=== PATIENT | male | born 1965 | race Caucasian/White ===

== ENCOUNTER 2024-11-05 06:38 | Emergency (ER) | payer BC, SELFPAY ==
[2024-11-05 06:46] VITALS: BP 137/96; PULSE 68; RESP 16; TEMP 36.6; O2SAT 94; BMI 33.4
--- NOTE | 2024-11-05 06:53 | CRLHL7_ITS ---
For Patients: As a result of the Century Cures Act, medical imaging exams and procedure reports are released immediately into your electronic medical record. You may view this report before your referring provider. If you have questions, please contact your health care provider. INDICATION: Fell 1 week prior with left-sided chest injury COMPARISON: None TECHNIQUE: : CT examination of the chest was performed without contrast.Thin axial sections were obtained from the thoracic inlet through the lung bases. Please note that all CT scans at this facility use dose modulation, iterative reconstruction, and/or weight-based dosing when appropriate to reduce radiation dose to as low as reasonably achievable. FINDINGS: : HEART and MEDIASTINUM: The heart size is normal. There is no mediastinal or hilar adenopathy or mass. There is no pericardial effusion.Calcified mediastinal lymph nodes likely related to remote granulomatous infection. Atherosclerotic vascular calcifications are noted including the coronary arteries. Fusiform aneurysmal dilation of the ascending aorta at 4.5 centimeters. LUNGS and PLEURAL SPACES: The lungs show no focal consolidation or mass. Evidence of remote granulomatous infection. No suspicious nodule. The airways appear normal.There is no pleural effusion, pneumothorax or pleural based mass. VISUALIZED UPPER ABDOMEN: The limited visualized upper abdominal structures appear normal. OSSEOUS STRUCTURES: Age-appropriate appearance. No acute fracture or destructive process.No visible chest wall injury. No visible fracture. Degenerative changes of the spine TUBES and LINES: None. IMPRESSION: 1. No visible posttraumatic findings involving the chest wall, osseous structures, including the ribs, lungs, mediastinum or pleural spaces. 2. Evidence of remote granulomatous infection. 3. Incidental findings include atherosclerotic vascular calcifications, including the coronary arteries and fusiform aneurysmal dilation of the ascending aorta at 4.5 centimeters. Please note that all CT scans at this facility use dose modulation, iterative reconstruction, and/or weight-based dosing when appropriate to reduce radiation dose to as low as reasonably achievable. Dictated by Tyrel Short MD @ 11/05/2024 7:18:29 AM (Electronically Signed)
--- NOTE | 2024-11-05 07:36 | ED_ITS ---
HPI - General Adult General Chief complaint: Rib Pain Stated complaint: rib pain Time Seen by Provider: 11/05/24 06:51 History of Present Illness HPI narrative: Patient is a 81-year-old gentleman who fell last week landing on the left side of his chest and left arm. He has chest wall pain in the anterior axillary line on the left. He had been getting better with improvement of his symptoms but he sneezed yesterday and now the pain is significant again. Pain is now 6/10 sharp localized to the left anterior chest wall. No cough no sputum production no nausea no vomiting no fevers no chills. Patient is otherwise doing fine he is not his head and did not lose consciousness with his fall. Related Data Allergies Allergy/AdvReac Type Severity Reaction Status Date / Time No Known Drug Allergies Allergy Verified 11/05/24 06:50 Review of Systems Status of ROS: Reports: 10 or more systems reviewed and unremarkable except as noted in History and below Exam Narrative: Exam Narrative: EXAM GENERAL: Patient appears comfortable and well. EYES: No scleral icterus. ENT: Tympanic membranes and oropharynx normal. THYROID: no thyroid nodules or thyromegaly. LYMPH: No supraclavicular or cervical lymphadenopathy. SKIN: Visible skin seen during exam normal or with benign process only. EXT: No dependent lower extremity pedal edema. HEART: Regular rate and rhythm with no murmurs, rubs, or gallops. LUNGS: Clear to auscultation bilaterally with no crackles or wheezes. ABD: Soft, non tender, non distended. PSYCH: Good eye contact, speech is not pressured. Chest wall exam nontender palpation. Const: Vital Signs, click to edit/add: Vital Signs - 24 hr 11/05/24 06:46 Temperature 98 F Pulse Rate [Pulse Oximeter] 68 Respiratory Rate 16 Blood Pressure [Ri ght Upper Arm] 137/96 H Pulse Oximetry 94 Oxygen Delivery Me thod Room Air Course Vital Signs Vital signs: Initial Vital Signs Temperature 98 F 11/05/24 06:46 Temperature Source Temporal Artery Scan 11/05/24 06:46 Pulse Rate 68 11/05/24 06:46 Respiratory Rate 16 11/05/24 06:46 Blood Pressure 137/96 H 11/05/24 06:46 Blood Pressure Mean 109 H 11/05/24 06:46 Blood Pressure Position Semi-Fowlers 11/05/24 06:46 Pulse Oximetry 94 11/05/24 06:46 Oxygen Delivery Method Room Air 11/05/24 06:46 Vital Signs Temperature 98 F 11/05/24 06:46 Pulse Rate 68 11/05/24 06:46 Respiratory Rate 16 11/05/24 06:46 Blood Pressure 137/96 H 11/05/24 06:46 Pulse Oximetry 94 11/05/24 06:46 Oxygen Delivery Method Room Air 11/05/24 06:46 Temperature 98 F 11/05/24 06:46 Pulse Rate 68 11/05/24 06:46 Respiratory Rate 16 11/05/24 06:46 Blood Pressure 137/96 H 11/05/24 06:46 Pulse Oximetry 94 11/05/24 06:46 Oxygen Delivery Method Room Air 11/05/24 06:46 Medical Decision Making MDM Narrative Medical decision making narrative: Patient is a 59-year-old gentleman who presents with a chest wall contusion with worsening with this knees yesterday. He underwent CT of the chest and no fractures are seen. This time I did offer reassurance Tylenol Motrin rest ice and follow-up with his primary physician as needed. Discharge Plan Discharge Clinical Impression: Contusion Patient Disposition: Home, Self-Care Condition: Stable Instructions: Contusion in Adults (ED) Additional Instructions: Tylenol 1000 mg 3 times a day as needed Motrin 600 mg 3 times a day as needed Ice Follow-up with your doctor as needed. Activity Level: No Restrictions Discharge Diet: Regular Follow Up/Referrals: Sweetie Browning MD [Primary Care Provider, Family Practice] Stand Alone Forms: [employer] Info Instructions
== END 2024-11-05 07:45 | disposition home or self-care (01) ==
PROVIDERS: Emergency Provider Internal Medicine; PCP Family Medicine
DX: S20.212A Contusion of left front wall of thorax, initial encounter (principal)
CPT/HCPCS: 71250; 99283; 99284